=== PATIENT | male | born 1980 | race Caucasian/White ===

== ENCOUNTER 2017-03-14 20:43 | Emergency (ER) | payer OTHER ==
--- NOTE | 2017-03-14 21:04 | ED Physician Documentation ---
PD HPI MHE - Stated complaint Stated Complaint: MHE - Chief complaint Chief Complaint: MHE - History obtained from History obtained from: Patient PD PAST MEDICAL HISTORY - Present Medications Home Medications: Ambulatory Orders Medication Instructions Recorded Confirmed Citalopram [CeleXA] 10 mg PO ONCE 03/14/17 03/14/17 - Allergies Allergies/Adverse Reactions: Allergies Allergy/AdvReac Type Severity Reaction Status Date / Time No Known Allergies Allergy Unknown Verified 03/14/17 21:02 Results - Vitals Vitals: Vital Signs - 24 hr 03/14/17 20:59 Temperature 36.3 C L Heart Rate 53 L Respiratory 20 Rate Blood Pressure 171/96 H O2 Saturation 97 Oxygen O2 Source Room air
[2017-03-14] MEDS ORDERED: LORazepam 0.5 MG TABLET PO STA (21:24)
--- NOTE | 2017-03-14 21:32 | ED Physician Documentation ---
PD HPI MHE - Stated complaint Stated Complaint: MHE - Chief complaint Chief Complaint: MHE - History obtained from History obtained from: Patient, Family () - History of Present Illness Primary symptom: Other (37-year-old gentleman who has been having ongoing issues with stress at work and some marital issues. Today he had some verbal arguments with his and his left him for the day. Then his child became sick with what sounds like gastroenteritis and he became very frustrated. He felt like he was at the tipping point of having a mental breakdown, however there was no specific suicidal or homicidal ideation. There is no ongoing drug use.) Review of Systems Constitutional: denies: Fever, Chills Respiratory: denies: Dyspnea, Cough GI: denies: Abdominal Pain, Nausea : denies: Dysuria PD PAST MEDICAL HISTORY - Past Medical History Past Medical History: No Cardiovascular: None Respiratory: None Neuro: None Endocrine/Autoimmune: None GI: None : None HEENT: None Psych: None Musculoskeletal: None Derm: None - Past Surgical History Past Surgical History: No - Present Medications Home Medications: Ambulatory Orders Medication Instructions Recorded Confirmed Citalopram [CeleXA] 10 mg PO ONCE 03/14/17 03/14/17 Lorazepam [Ativan] 1 mg PO TID PRN #3 tablet 03/14/17 - Allergies Allergies/Adverse Reactions: Allergies Allergy/AdvReac Type Severity Reaction Status Date / Time No Known Allergies Allergy Unknown Verified 03/14/17 21:02 - Social History Does the pt smoke?: No Smoking Status: Never smoker Does the pt have substance abuse?: No - Immunizations Immunizations are current?: Yes PD ED PE NORMAL - Vitals Vital signs reviewed: Yes - General General: Alert and oriented X 3, No acute distress - Neuro Neuro: Alert and oriented X 3, 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 He is having trouble with sleep and depression and stress at work. 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 The patient did not think he needed all this, seemed happy with the idea of a couple of Ativan and he will follow-up with his counselor on Thursday. Departure - Departure Disposition: Home, Self Care Clinical Impression: Stress reaction Condition: Good Record reviewed to determine appropriate education?: Yes Instructions: ED Stress React Prescriptions: Lorazepam [Ativan] 1 mg PO TID PRN #3 tablet PRN Reason: Anxiety Comments: Follow-up with your counselor on Thursday, return if worse or if he develop thoughts of suicidal ideation. Your blood pressure was elevated today on check into the emergency department. This does not mean that you have hypertension, it is a common phenomenon to come to the emergency department and have elevated blood pressure. I recommend that she see her primary care physician within the week to have it rechecked when you are feeling better.
[2017-03-14] MEDS ORDERED: LORazepam 0.5 MG TABLET ONE (21:33)
[2017-03-14 21:38] VITALS: BP 133/95
== END 2017-03-14 21:52 | disposition home or self-care (01) ==
LOC: ED 20:43
DX: F43.9 Reaction to severe stress, unspecified (principal); R03.0 Elevated blood-pressure reading, without diagnosis of hypertension; F32.9 Major depressive disorder, single episode, unspecified
CPT/HCPCS: 99283; A9270

== ENCOUNTER 2021-02-19 18:40 | Emergency (ER) | payer OTHER ==
--- NOTE | 2021-02-19 20:56 | ED Physician Documentation ---
History of Present Illness - Stated complaint Stated Complaint: DOG BITE/LT HAND - Chief complaint Chief Complaint: Laceration - Additonal information Additional information: 40-year-old male presents emergency department for evaluation of a left hand dog bite injury sustained last night by his dog at home. Is a new dog to him and he was giving it medication when it bit his left hand. The dog is only had one rabies vaccine. He presents today with increasing left hand pain swelling and erythema. Patient's tetanus is up-to-date. right hand dominate Review of Systems Constitutional: denies: Fever, Chills Eyes: reports: Loss of vision Nose: reports: Reviewed and negative Throat: reports: Reviewed and negative Cardiac: reports: Reviewed and negative Respiratory: reports: Reviewed and negative GI: reports: Reviewed and negative : reports: Reviewed and negative Skin: reports: Laceration (s) (Dog bite left hand) PD PAST MEDICAL HISTORY - Past Medical History Cardiovascular: None Respiratory: None Endocrine/Autoimmune: None GI: None : None HEENT: None Psych: None Musculoskeletal: None Derm: None - Past Surgical History Past Surgical History: No - Present Medications Home Medications: Ambulatory Orders Medication Instructions Recorded Confirmed Citalopram [CeleXA] 10 mg PO ONCE 03/14/17 03/14/17 Lorazepam [Ativan] 1 mg PO TID PRN #3 tablet 03/14/17 Amox/Clav 875/125 [Augmentin] 1 each PO Q12H #20 tablet 02/19/21 - Allergies Allergies/Adverse Reactions: Allergies Allergy/AdvReac Type Severity Reaction Status Date / Time No Known Allergies Allergy Unknown Verified 02/19/21 18:58 - Social History Does the pt smoke?: No Smoking Status: Never smoker Does the pt have substance abuse?: No - Immunizations Immunizations are current?: Yes PD ED PE EXPANDED - General General: Alert, No acute distress - Extremities Extremities: Left hand (Dog bite puncture wound left dorsum of hand between the ring and small finger. Smaller puncture wound on dorsum of left hand between thumb and ring finger. Extending swelling and erythema with mild induration. No purulent drainage.), Other (Patient is able to make a normal grasp with the left hand though painful.) Results - Vitals Vitals: Vital Signs - 24 hr 02/19/21 02/19/21 18:58 19:33 Temperature 36.7 C 98.6 C H Heart Rate 68 76 Respiratory 16 18 Rate Blood Pressure 139/87 H 144/86 H O2 Saturation 97 99 Oxygen O2 Source Room air PD MEDICAL DECISION MAKING - ED course Complexity details: reviewed results ED course: 40-year-old male presents the emergency department for a dog bite wound to his left hand sustained 24 hours ago. He has 2 puncture wounds on the dorsum of the hand now with some swelling erythema and induration consistent with infection. His tetanus is up-to-date. He was given a gram of ceftriaxone here in the emergency department and will be prescribed a 10-day course of Augmentin. Patient advised to return to the ER for worsening symptoms. Departure - Departure Disposition: 01 Home, Self Care Clinical Impression: Dog bite of left hand Qualifiers: Encounter type: initial encounter Qualified Code(s): S61.452A - Open bite of left hand, initial encounter; W54.0XXA - Bitten by dog, initial encounter Condition: Stable Record reviewed to determine appropriate education?: Yes Instructions: ED Bite Dog Prescriptions: Amox/Clav 875/125 [Augmentin] 1 each PO Q12H #20 tablet Comments: Luis arcos are seen in the ER today for a dog bite of your left hand. Dog bite wounds can get infected very quickly. You were given your first dose of antibiotic tonight here in the emergency department. Please fill the prescription for the Augmentin and begin taking twice daily for the next 10 days[address] I recommend that you place a warm compress on your hand to help improve pain and allow the puncture wounds to drain if they are going to. If despite the antibiotics you are having increased pain swelling redness or develop any fevers please return immediately to the ER for a second evaluation.
[2021-02-19] MEDS: LIDOCAINE 1% 2 ML VIAL MC ONE (21:01)
[2021-02-19] MEDS: cefTRIAXone 1 GM VIAL IM STA (21:01)
[2021-02-19] MEDS: BACITRACIN ZINC OINT 1 PACKET TOP STA (21:02)
[2021-02-19 21:19] VITALS: BP 140/74
== END 2021-02-19 21:19 | disposition home or self-care (01) ==
LOC: ED 18:40
DX: S61.452A Open bite of left hand, initial encounter (principal); W54.0XXA Bitten by dog, initial encounter; Y93.K9 Activity, other involving animal care; Y92.009 Unspecified place in unspecified non-institutional (private) residence as the place of occurrence of the external cause
CPT/HCPCS: 96372; 99283; A9270

== ENCOUNTER 2022-02-06 14:55 | Emergency (ER) | payer OTHER ==
[2022-02-06 15:09] VITALS: BP 164/85
--- NOTE | 2022-02-06 15:17 | ED Physician Documentation ---
PD HPI HEADACHE - Stated complaint Stated Complaint: HIGH BP - Chief complaint Chief Complaint: General - History obtained from History obtained from: Patient - History of Present Illness Timing - onset: Today Timing - onset during: Light activity (He states he did have a feeling of pressure and tenseness in his body and mild pressure in his head. He was seen for routine medical appointment with a psychologist today and initial vital signs showed elevated blood pressure 168/90. Directed to come to the ER immediately by nursing there.) Timing - details: Gradual onset Worst headache ever?: No: Worst headache ever? (not really headache, but feeling of tension today. States had high sodium food for lunch. Does not check BP regularly, but occasional checks are typically 135-145 systolic.) Quality: Tightness Associated symptoms: No: Fever, Stiff neck, Nausea, Weakness, Numbness Contributing factors: No: Hypertension, Recent illness Similar symptoms before: Has not had sx before Review of Systems Constitutional: denies: Fever, Chills Nose: denies: Rhinorrhea / runny nose, Congestion Throat: denies: Sore throat Respiratory: denies: Cough GI: denies: Nausea, Vomiting, Diarrhea Musculoskeletal: denies: Extremity swelling Neurologic: denies: Generalized weakness, Near syncope PD PAST MEDICAL HISTORY - Past Medical History Cardiovascular: None Respiratory: None Endocrine/Autoimmune: None GI: None : None HEENT: None Psych: None Musculoskeletal: None Derm: None - Past Surgical History Past Surgical History: No - Present Medications Home Medications: Ambulatory Orders Medication Instructions Recorded Confirmed Citalopram [CeleXA] 10 mg PO ONCE 03/14/17 03/14/17 Lorazepam [Ativan] 1 mg PO TID PRN #3 tablet 03/14/17 Amox/Clav 875/125 [Augmentin] 1 each PO Q12H #20 tablet 02/19/21 - Allergies Allergies/Adverse Reactions: Allergies Allergy/AdvReac Type Severity Reaction Status Date / Time No Known Allergies Allergy Unknown Verified 02/06/22 15:09 - Social History Does the pt smoke?: No Smoking Status: Never smoker Does the pt drink ETOH?: Yes Does the pt have substance abuse?: No - Immunizations Immunizations are current?: Yes PD ED PE NORMAL - Vitals Vital signs reviewed: Yes - General General: Alert and oriented X 3, No acute distress, Well developed/nourished - HEENT HEENT: PERRL, EOMI - Neck Neck: Supple, no meningeal sign, No adenopathy - Cardiac Cardiac: RRR, No murmur - Respiratory Respiratory: Clear bilaterally - Derm Derm: Normal color, Warm and dry - Extremities Extremities: No edema, No calf tenderness / cord - Neuro Neuro: Alert and oriented X 3, No motor deficit, Normal speech Results - Vitals Vitals: Vital Signs - 24 hr 02/06/22 15:04 Temperature 36.8 C Heart Rate 81 Respiratory 14 Rate Blood Pressure 164/85 H O2 Saturation 97 Oxygen O2 Source Room air PD MEDICAL DECISION MAKING - ED course Complexity details: considered differential (Discussed with the patient general guidelines and heart association guidelines about not treating isolated elevated blood pressure readings but establishing a trend over time. Unfortunately the nurses at his primary care clinic do not know these things.), d/w patient Departure - Departure Disposition: 01 Home, Self Care Clinical Impression: Elevated blood pressure reading Condition: Stable Record reviewed to determine appropriate education?: Yes Instructions: ED Hypertension Poss Follow-Up: MANAV Venegas [Provider Group] Comments: The general consensus on high blood pressure readings and in particular from the Heart Association is to not treat a single elevated blood pressure reading. Instead we would suggest evaluating your blood pressure again several times over the next week or 2 and see if there is a consistency to it. If there is, that may be suggestive of needing initial blood pressure medicine. If this is an isolated elevated reading then no further intervention is needed. Meanwhile continue usual activities. Try to have a low-salt diet. Continue usual medications except for holding your ADD medicine as directed by your psychologist. Check your blood pressure at home several times over the next several days but do it in the mornings or evening to get a better reading. Follow-up next Thursday as scheduled. Bring with you the recorded/written down blood pressure readings you get over the next several days. Do not take your blood pressure more than once at a time as repeating it too oft en will elevate it responsively from the blood vessels in your arm. Discharge Date/Time: 02/06/22 15:54
== END 2022-02-06 15:54 | disposition home or self-care (01) ==
LOC: ED 14:55
DX: R03.0 Elevated blood-pressure reading, without diagnosis of hypertension (principal)
CPT/HCPCS: 99281; 99282

== ENCOUNTER 2022-04-12 21:24 | Emergency (ER) | payer OTHER ==
[2022-04-12 21:31] VITALS: BP 144/83
--- NOTE | 2022-04-12 21:57 | ED Physician Documentation ---
PD HPI HEENT - Stated complaint Stated Complaint: NASAL PX/PRESSURE - Chief complaint Chief Complaint: Heent - History obtained from History obtained from: Patient - History of Present Illness Timing - onset: Enter time (03:00 (less than 24 hours [employer])) Timing - details: Gradual onset Pain level now: 2 Location: Sinuses Improves: Nothing Worsens: Other (no exacerbating factors) Associated symptoms: Congestion, Rhinorrhea. No: Fever Similar symptoms before: Has not had sx before Recently seen: Not recently seen - Additional information Additional information: c/o rhinorrhea with thick, green mucous discharge from right nare and right maxillary sinus pain and congestion. Review of Systems Constitutional: denies: Fever, Chills, Sweats Ears: denies: Ear pain Nose: reports: Rhinorrhea / runny nose, Congestion, Sinus pressure / pain Throat: denies: Sore throat PD PAST MEDICAL HISTORY - Past Medical History Cardiovascular: None Respiratory: None Endocrine/Autoimmune: None GI: None : None HEENT: None Psych: None Musculoskeletal: None Derm: None - Past Surgical History Past Surgical History: No - Present Medications Home Medications: Ambulatory Orders Medication Instructions Recorded Confirmed Amox/Clav 875/125 [Augmentin 1 tablet PO Q12H 10 Days #20 tablet 04/12/22 875/125 Tab] Dextroamphetamine/Amphetamine 10 mg PO DAILY 04/12/22 04/12/22 [Dextroamp-Amphetamine 5 mg Tab] Fluticasone [Flonase] 2 sprays MANAV DAILY #16 gm 04/12/22 Ibuprofen [Motrin] 600 mg PO Q6H PRN #20 tab 04/12/22 Lisinopril [Zestril] 10 mg PO DAILY 04/12/22 04/12/22 - Allergies Allergies/Adverse Reactions: Allergies Allergy/AdvReac Type Severity Reaction Status Date / Time No Known Allergies Allergy Unknown Verified 04/12/22 21:31 - Social History Does the pt smoke?: No Smoking Status: Never smoker Does the pt drink ETOH?: Yes Does the pt have substance abuse?: No - Immunizations Immunizations are current?: Yes PD ED PE NORMAL - Vitals Vital signs reviewed: Yes - General General: Alert and oriented X 3, No acute distress, Well developed/nourished - HEENT HEENT: Ears normal, Moist mucous membranes, Pharynx benign - Neck Neck: Supple, no meningeal sign - Respiratory Respiratory: No respiratory distress, Clear bilaterally Results - Vitals Vitals: Oxygen O2 Source Room air PD MEDICAL DECISION MAKING - ED course Complexity details: considered differential, d/w patient Departure - Departure Disposition: 01 Home, Self Care Clinical Impression: Maxillary sinusitis, acute Condition: Good Instructions: ED Sinusitis Abx Tx Prescriptions: Amox/Clav 875/125 [Augmentin 875/125 Tab] 1 tablet PO Q12H 10 Days #20 tablet Fluticasone [Flonase] 2 sprays MANAV DAILY #16 gm Ibuprofen [Motrin] 600 mg PO Q6H PRN #20 tab PRN Reason: Pain Comments: In addition to the prescriptions provided, you can also try oxymetazoline (Afrin is one of the brand names of this medication) nasal spray. This can cause transient elevations of blood pressure. Discharge Date/Time: 04/12/22 22:38
[2022-04-12] MEDS ORDERED: AMOX/CLAV 875 MG/125 MG TABLET PO STA (22:28)
== END 2022-04-12 22:38 | disposition home or self-care (01) ==
LOC: ED 21:24
DX: J01.00 Acute maxillary sinusitis, unspecified (principal)
CPT/HCPCS: 99282; 99283; A9270

== ENCOUNTER 2023-12-24 13:59 | Outpatient (CLI) | payer OTHER | END 2023-12-24 14:00 | disposition home or self-care (01) | LOC: DI 13:59 | PROVIDERS: ATTEND Internal Medicine | DX: I35.8 Other nonrheumatic aortic valve disorders (principal); I10 Essential (primary) hypertension | CPT/HCPCS: 93307 ==